=== PATIENT | male | born 1980 | race Caucasian/White ===

== ENCOUNTER 2025-03-21 19:03 | Inpatient (IN) | payer BC, SELFPAY ==
[2025-03-21] VITALS (13 sets, daily range): BP systolic 115–144; BP diastolic 72–102; PULSE 62–96; RESP 12–20; TEMP 34.7–36.6; O2SAT 95–100; BMI 28.2; BMI 35.5
--- NOTE | 2025-03-21 19:12 | EKG12_ITS ---
Test Reason : REPEAT CP Blood Pressure : */* mmHG Vent. Rate : 60 BPM Atrial Rate : 60 BPM P-R Int : 162 ms QRS Dur : 92 ms QT Int : 418 ms P-R-T Axes : 65 29 100 degrees QTcB Int : 418 ms Critical Test Result: STEMI Normal sinus rhythm Inferior infarct , possibly acute T wave abnormality, consider lateral ischemia ACUTE RI / STEMI Consider right ventricular involvement in acute inferior infarct Abnormal ECG Confirmed by KELLI OVIEDO, TREE ([id number]), managing editor TAYA CHUNG ([id number]) on 03/23/2025 9:18:53 AM Referred By: WILLIS Confirmed By: TERE PEREIRA MD
--- NOTE | 2025-03-21 19:12 | ED.VIS.CHEST ---
HPI History of Present Illness Chief Complaint: Chest Pain Informant: patient and family Narrative Narrative: Sudden chest discomfort 40 minutes prior to arrival. [place] bike pretty hard with his side. Only felt fatigue during the bike ride. States achiness to the chest however pain rating to his shoulder reported he was clammy and pale. He vomited on the way here. No cardiac history. Remote tobacco 10 years ago. No family history of MIs at a young age. Hypertension no diabetes no hyperlipidemia. He is visiting from [place]. No history of blood clots. No cough symptoms. No history of stress test or heart caths in the past. Prior Similar Symptoms: No CVD Risk Factors: Positive for Hypertension; Negative for Diabetes, Hypercholesterolemia, Family History 1' </=55 or Smoking PE Risk Factors: Negative for Recent Travel/Surgery, Recent Immobilization or Prior DVT or PE [facility] Medical History Hypertension Home Medications ?Medication ?Instructions ?Recorded ?Last Taken ?Type losartan 25 mg tablet 25 mg PO DAILY 03/21/25 Unknown History Allergy/AdvReac Type Severity Reaction Status Date / Time No Known Allergies Allergy Verified 03/21/25 19:12 Social History Smoking Status: Former smoker ROS ROS ED Constitutional Constitutional ED: Reports sweats; Denies chills or fever(s) ENT ENT ED: Denies sore throat Cardiovascular Cardiovascular: Reports chest pain; Denies leg edema, palpitations or racing heartbeat Respiratory/Chest Respiratory/Chest: Denies cough, dyspnea or dyspnea on exertion Gastrointestinal Gastrointestinal: Reports nausea and vomiting; Denies abdominal pain or diarrhea Genitourinary Genitourinary ED: Denies dysuria, hematuria or urinary frequency Musculoskeletal Musculoskeletal: Denies back pain, extremity pain or neck pain Integumentary Denies rash or wounds Neurologic Neurologic: Denies headache(s), paresthesias or weakness EXAM Physical Exam Const Vital Signs: 03/21/25 19:05 03/21/25 19:09 03/21/25 19:14 Temperature 94.4 F L Temperature Source Oral Pulse Rate 63 Respiratory Rate 17 Respiratory Effort Short of Breath Blood Pressure 144/102 H Blood Pressure Mean 116 Pulse Ox 95 99 Oxygen Delivery Method Room Air Room Air Heart Score History: Highly Suspicious ECG: Significant ST-Depression Age: </= 45 years Risk Factors: 1 or 2 Risk Factors Troponin: </= Normal Limit Score: 5 MDM MDM MDM Narrative Medical decision making narrative: Interventions / MDM: Differential diagnosis: STEMI, chest pain, acs Diagnosis considered but do not suspect: N/A My EKG interpretation: Sinus rate of 77, no concerning ST elevation noted in inferior leads no reciprocal depressions however there are T wave inversion in aVL slight downsloping. T wave inversions anterior leads V1 V2. PVC noted. Repeat EKG at 1927: Unchanged. Imaging independently reviewed and interpreted by myself: N/A External documents reviewed: N/A Test considered but not ordered:N/A ED course: Patient with chest pains on the monitor heart rate 60 blood pressure 144/102. Cardiac workup ordered with aspirin. EKG concerning ST elevation in inferior leads no clear reciprocal changes however noted T wave version with downsloping aVL. STEMI alert was initiated. 1914: I spoke with STEMI photovoltaic subcontractor Dr. Whittaker, reviewed the imaging concerning of early onset of STEMI. Does not meet full criteria with reciprocal, however with ongoing pain does agree with aspirin Brilinta heparin. He will come in to see the patient to perform a heart catheterization. Recommend repeat EKG. Hospitalist Dr. Mcintyre is present in the ED evaluating the patient. 1927: Repeat EKG unchanged from first 1 however electrically is noting STEMI. 1934: Patient still uncomfortable with pain does not agree for pain medicines. IV fentanyl given. Blood pressure 132/92 1938: Discussing with Dr. Whittaker, does not meet full STEMI criteria, will treat as acute coronary syndrome concerns with unstable angina. He will take him to the Dis[facility]. Re-evaluation: stable Disposition discussed with patient/family/significant other: patient Case discussed with consulting clinician: interventional cardiology, hospitalist This note was generated with [employer] dictation software. It may contain incorrect words, spelling, and punctuation that were not noted in checking the note before signing. Lab Data Labs: Laboratory Results - last 24 hr 03/21/25 19:09 WBC 9.4 RBC 4.93 Hgb 14.8 Hct 42.7 MCV 86.6 MCH 30.0 MCHC 34.7 RDW Std Deviation 39.1 RDW Coeff of [place] 12.3 Plt Count 190 MPV 9.7 Immature Gran % (Auto) 0.200 Neut % (Auto) 44.8 L Lymph % (Auto) 42.3 H [place] % (Auto) 9.6 Eos % (Auto) 2.5 Baso % (Auto) 0.6 Absolute Neuts (auto) 4.2 Absolute Lymphs (auto) 3.99 Nucleated RBC % 0 PT 15.3 H INR 1.2 APTT 25.0 Sodium 139 Potassium 3.5 Chloride 101 Carbon Dioxide 25.1 Anion Gap 14 BUN 14 Creatinine 0.98 Estim Creat Clear Calc 114.72 Est GFR (MDRD) Non-Af 98 BUN/Creatinine Ratio 14.0 Glucose 120 H Calcium 9.2 Troponin T High Sens < 6 Critical Care Time Critical Care Time: Yes Critical care time (excluding procedures): 30-74 minutes, Discussing w/Patient &/or Family/Electrical Research Engineer, Discussing w/Consultants, Arranging Admission or Transfer, Performing Direct Patient Care at Bedside and - (35 minutes) Discharge Plan Dx/Rx/DC Orders Clinical Impression: Chest pain, ACS (acute coronary syndrome), Unstable angina Disposition Disposition: Acute Care Hospital [facility]
--- NOTE | 2025-03-21 19:15 | CM.ED ---
Social Work Date of referral: 03/21/25 Reason for Referral: STEMI alert mill worker responded to STEMI alert. Patient's friend, eMet was present and social work therapist provided support to Meet while patient received medical care. Meet was asked to leave the room so social work therapist accompanied Meet to the waiting room and offered water while he waited, which he declined. Next time social work therapist went to check on patient and Meet, patient was no longer in the ED. Rina Nichole, FISH FILLETER, STEM CLEANING MACHINE FEEDER
[2025-03-21] MEDS: Ondansetron 4 MG/2 ML Vial IV (19:17)
[2025-03-21] MEDS: Heparin Injection (Vial) 5,000 UNIT/ML VIAL 5000 UNIT IV (19:20)
[2025-03-21 19:21] LABS: Absolute Lymphocyte Count 3.99 X10^3/uL (0.83-4.51); Absolute Neutrophil Count 4.2 X10^3/uL (2.0-7.7); Basophil# 0.06 X10^3/uL; Basophil% 0.6 % (0-1); Eosinophil# 0.24 X10^3/uL; Eosinophils% 2.5 % (0-5); Hematocrit 42.7 % (40-54); Hemoglobin 14.8 g/dL (13.0-16.5); Lymphocyte # 3.99 X10^3/ul (0.83-4.51); Lymphocyte % 42.3 % (19-41); Mean Corp Hgb Conc 34.7 g/dL (32-36); Mean Corpuscular Volume 86.6 fL (80-94); Mean Platelet Vol. 9.7 fl (6.2-12.0); Monocyte# 0.91 X10^3/uL; Monocyte% 9.6 % (0-10); NRBC Flagged by Analyzer 0 % (0-5); Neutrophil # 4.22 X10^3/uL (2.7-7.7); Neutrophil % 44.8 % (47-70); Platelet Count 190 K/mm3 (150-450); RBC Distribution Width CV 12.3 % (11.6-14.6); RBC Distribution Width SD 39.1 fl (35.1-43.9); Red Blood Count 4.93 M/mm3 (4.6-6.2); White Blood Count 9.4 K/mm3 (4.4-11.0)
--- NOTE | 2025-03-21 19:22 | EKG12_ITS ---
Test Reason : CP Blood Pressure : */* mmHG Vent. Rate : 77 BPM Atrial Rate : 65 BPM P-R Int : 164 ms QRS Dur : 92 ms QT Int : 412 ms P-R-T Axes : 64 31 97 degrees QTcB Int : 466 ms Sinus rhythm with occasional Premature ventricular complexes Nonspecific ST and T wave abnormality Abnormal ECG Confirmed by KELLI OVIEDO, TERE ([id number]), offline editor TAYA CHUNG ([id number]) on 03/23/2025 9:18:26 AM Referred By: WILLIS Confirmed By: TERE PEREIRA MD
[2025-03-21] MEDS: Aspirin 81 MG TAB.CHEW 324 MG PO (19:23)
[2025-03-21] MEDS: TICAGRELOR 90 MG TABLET 180 MG PO (19:25)
--- NOTE | 2025-03-21 19:26 | NURSING ---
Right groin and wrist prepped, consent signed, Meds given as ordered. Pt refuses need for pain meds. left shoulder pain 02/12.
[2025-03-21 19:27] LABS: International Normalized Ratio 1.2; Prothrombin Time (Protime)PT. 15.3 SECONDS (11.7-14.9)
--- NOTE | 2025-03-21 19:31 | EKG12_ITS ---
Test Reason : post pci Blood Pressure : */* mmHG Vent. Rate : 58 BPM Atrial Rate : 58 BPM P-R Int : 162 ms QRS Dur : 88 ms QT Int : 420 ms P-R-T Axes : 68 11 81 degrees QTcB Int : 412 ms Sinus bradycardia with sinus arrhythmia Possible Inferior infarct , age undetermined Abnormal ECG When compared with ECG of 21-Mar-2025 22:41, MANUAL COMPARISON REQUIRED DATA IS UNCONFIRMED Confirmed by KELLI OVIEDO, TERE ([id number]), editor managing director TAYA CHUNG ([id number]) on 03/23/2025 9:43:19 AM Referred By: Confirmed By: TERE PEREIRA MD
--- NOTE | 2025-03-21 19:32 | PCM.HP.STD ---
HPI - General General Date of Admission: 03/21/25 Date of Service: 03/21/25 Chief Complaint: Acute chest pain HPI Narrative OLAYINKA BROWN, is a 44 M with past medical history of hypertension on losartan who presents to the ED with concerns regarding ongoing left-sided back shoulder and arm pain since last 30 to 45 minutes. The pain started after he biked around his house for 30 minutes. There is some associated diaphoresis and feels significantly fatigued but no nausea or vomiting. Has never had a pain similar to this before. Has a history of smoking but has quit about 10 years back. No marijuana use no other drug use. History of hypertension and takes losartan consistently, notes his blood pressure is is fairly well-controlled. No history of cardiac disease in the family, no history of prior anginal-like episodes, no history of PND At the time presentation to the ED blood pressure 132/91, pulse 62, respiratory 12, oxygen daily 97% on room air WBC 9.4, hemoglobin 14.8, platelet count 190, INR 1.2, PT 15.3. His EKG was suggestive of elevations and ST segment in leads II, III, aVF but no reciprocal changes in rest of the leads. ED physician spoke with inspector hairspring truing on-call, given concerns of ACS, patient is being taken to the [facility]. He has received 300 mg of aspirin, 180 mg of Brilinta, and 5000 units of IV heparin in the ED. Also, provided fentanyl 50 mcg for pain [facility] Medical History Hypertension Home Medications ?Medication ?Instructions ?Recorded ?Last Taken ?Type losartan 25 mg tablet 25 mg PO DAILY 03/21/25 Unknown History Allergy/AdvReac Type Severity Reaction Status Date / Time No Known Allergies Allergy Verified 03/21/25 19:12 Social History Smoking Status: Former smoker ROS Review of Systems ROS Unobtainable: Denies due to encephalopathy, due to endotracheal tube, due to mental condition, due to mental status or other Constitutional Constitutional: Denies anorexia, change in weight, chills, fatigue, fever(s), malaise, night sweats, weakness or other Eyes Eyes: Denies blurry vision, change in eye color, change in vision, discharge from eye(s), double vision, erythema, eye pain, loss of vision or other ENT HEENT: Denies abnormal hearing, dysphagia, ear pain, epistaxis, headache(s), hearing loss, nasal congestion, nasal discharge, post nasal drip, sinus pressure, sore throat or other Cardiovascular Cardiovascular: Reports chest pain; Denies claudication, dyspnea on exertion, edema, lightheadedness, orthopnea, palpitations, paroxysmal nocturnal dyspnea, rapid heart rate, syncope or other Respiratory/Chest Respiratory/Chest: Denies cough, dyspnea, excessive phlegm production, hemoptysis, productive cough, shortness of breath at rest, shortness of breath with exertion, wheezing or other Gastrointestinal Gastrointestinal: Denies abdominal pain, coffee ground emesis, constipation, diarrhea, dyspepsia, hematemesis, hematochezia, loose stools, melena, nausea, vomiting or other Genitourinary Genitourinary: Denies burning urination, difficulty urinating, dysuria, hematuria, nocturia, urinary frequency, urinary hesitancy, urinary incontinence, urinary urgency or other Musculoskeletal Musculoskeletal: Denies arthralgias, back pain, joint pain, joint stiffness, joint swelling, myalgias, neck pain or other Neurologic Neurologic: Denies abnormal gait, abnormal speech, confusion, disequilibrium, dizziness, focal weakness, headache(s), numbness, paresthesias, seizure-like activity, seizures, syncope, tingling, tremor(s) or other Psychiatric Psychiatric: Denies anxiety, depression, homicidal ideation, suicidal ideation or other Endocrine Endocrinology: Denies change in body appearance, cold intolerance, excessive sweating, heat intolerance, polydipsia, polyuria or other Hematologic/Lymphatic Hematologic/Lymphatic: Denies anemia, easy bleeding, easy bruising, lymphadenopathy or other Allergic/Immunologic Allergic/Immunologic: Denies rhinitis, hives, eczemia, asthma or other Vital Signs Vital Signs Vital Signs: 03/21/25 19:05 03/21/25 19:09 03/21/25 19:14 Temperature 94.4 F L Temperature Source Oral Pulse Rate 63 Respiratory Rate 17 Respiratory Effort Short of Breath Blood Pressure 144/102 H Blood Pressure Mean 116 Pulse Ox 95 99 Oxygen Delivery Method Room Air Room Air 03/21/25 19:30 Temperature 98 F Temperature Source Oral Pulse Rate 62 Respiratory Rate 12 Respiratory Effort Blood Pressure 132/91 H Blood Pressure Mean 104 Pulse Ox 97 Oxygen Delivery Method Room Air Weight Weight: 208 lb 1.862 oz Body Mass Index (BMI) 28.2 Physical Exam Const alert and oriented x3 General Appearance: cooperative HEENT normocephalic and head/scalp atraumatic Eyes PERRL and EOMs intact bilaterally Neck no lymphadenopathy Resp normal respiratory effort Cardio regular rate and regular rhythm Cardio Narrative: Multiple PVCs on telemetry GI normal to inspection, nondistended, normoactive bowel sounds Extremity normal to inspection Neuro oriented x3, CN's II-XII intact bilaterally and moves all extremities Results Medical Records Data Attestation: I reviewed the patient's medical records Lab / Micro Data 03/21/25 19:09 03/21/25 19:09 Labs: Laboratory Results - last 24 hr 03/21/25 19:09: WBC 9.4, RBC 4.93, Hgb 14.8, Hct 42.7, MCV 86.6, MCH 30.0, MCHC 34.7, RDW Std Deviation 39.1, RDW Coeff of [place] 12.3, Plt Count 190, MPV 9.7, Immature Gran % (Auto) 0.200, Neut % (Auto) 44.8 L, Lymph % (Auto) 42.3 H, [place] % (Auto) 9.6, Eos % (Auto) 2.5, Baso % (Auto) 0.6, Absolute Neuts (auto) 4.2, Absolute Lymphs (auto) 3.99, Nucleated RBC % 0, PT 15.3 H, INR 1.2, APTT 25.0 Assessment & Plan Assessment/Plan (1) ACS (acute coronary syndrome): PLAN: Plan 44-year-old male with past medical history of hypertension presents to the ED with acute onset chest pain radiating to the left arm with changes concerning for ST elevation on EKG. Likely reason for his presentation could be an acute coronary syndrome likely unstable angina and his troponin levels are . pending # Acute coronary syndrome -Based on discussion with cardiology, transferring patient urgently to [facility] for cardiac catheterization -Received aspirin, Brilinta, heparin in the ED -Admit to the ICU with continuous telemetry after the procedure # HTN - Hold losartan # DVT - Will be anticoagulated after the procedure
[2025-03-21 19:35] LABS: Anion Gap 14 (5-15); BUN 14 mg/dL (4-19); Calcium,Total 9.2 mg/dL (7.6-11.0); Carbon Dioxide 25.1 mmol/L (21.0-32.0); Chloride 101 mmol/L (98-108); Creatinine, Serum 0.98 mg/dL (0.70-1.20); EST Glomerular Filtration Rate 98 (>60); Estimated Creatinine Clearance 114.72 ml/min (50-250); Glucose 120 mg/dL (70-99); Potassium 3.5 mmol/L (3.3-5.1); Sodium Level 139 mmol/L (133-145); Troponin T High Sensitivity < 6 ng/L (<=22)
[2025-03-21] MEDS: fentaNYL 100 MCG/2 ML Ampul 50 MCG IV (19:37)
--- NOTE | 2025-03-21 21:51 | PCM.CONS.C ---
Assessment & Plan Assessment/Plan (1) ACS (acute coronary syndrome): PLAN: Treated with drug-eluting stent to the RCA. Recommend keeping patient on aspirin, Brilinta, statin, beta-nando. Continue losartan. HPI Consult Data Date of Consult: 03/21/25 HPI Narrative Reason for Consultation: Chest pain, acute coronary syndrome HPI Narrative: OLAYINKA BROWN, is a 44 M who presents with chest pain and shoulder pain. Patient's EKG was concerning with ST changes in the inferior leads. Patient was having ongoing chest pain and so he was brought emergently to the cardiac Auto Bra[facility] and underwent coronary angiography which revealed 100% occlusion of the proximal RCA that was treated with drug-eluting stent placement. Patient's chest pain resolved at the end of the procedure and he is being admitted to the CCU for further management. [facility] Medical History Hypertension Home Medications ?Medication ?Instructions ?Recorded ?Last Taken ?Type losartan 25 mg tablet 25 mg PO DAILY 03/21/25 Unknown History Allergy/AdvReac Type Severity Reaction Status Date / Time No Known Allergies Allergy Verified 03/21/25 19:12 Social History Smoking Status: Former smoker Physical Exam Const alert and oriented x3 HEENT normocephalic Eyes no scleral icterus Resp normal respiratory effort Cardio regular rate Risk Stratification Risk Stratification Applicable: No Charges/Coding Visit Charges Inpatient E&M: 02402 Init Hosp L2 Objective Data Vital Signs: Vital Signs Temp Pulse Resp BP Pulse Ox O2 Del Method 98 F 65 17 132/92 H 99 Room Air 03/21/25 19:33 03/21/25 19:33 03/21/25 19:33 03/21/25 19:33 03/21/25 19:33 03/21/25 19:30 Oxygen Delivery Method Room Air Weight: 208 lb 1.862 oz Body Mass Index (BMI) 28.2 Lab / Micro Data 03/21/25 19:09 03/21/25 19:09 Labs: Laboratory Results - last 24 hr 03/21/25 19:09: WBC 9.4, RBC 4.93, Hgb 14.8, Hct 42.7, MCV 86.6, MCH 30.0, MCHC 34.7, RDW Std Deviation 39.1, RDW Coeff of [place] 12.3, Plt Count 190, MPV 9.7, Immature Gran % (Auto) 0.200, Neut % (Auto) 44.8 L, Lymph % (Auto) 42.3 H, [place] % (Auto) 9.6, Eos % (Auto) 2.5, Baso % (Auto) 0.6, Absolute Neuts (auto) 4.2, Absolute Lymphs (auto) 3.99, Nucleated RBC % 0, PT 15.3 H, INR 1.2, APTT 25.0, Sodium 139, Potassium 3.5, Chloride 101, Carbon Dioxide 25.1, Anion Gap 14, BUN 14, Creatinine 0.98, Estim Creat Clear Calc 114.72, Est GFR (MDRD) Non-Af 98, BUN/Creatinine Ratio 14.0, Glucose 120 H, Calcium 9.2, Troponin T High Sens < 6 Cardiology Labs/Tests 03/21/25 19:09: WBC 9.4, RBC 4.93, Hgb 14.8, Hct 42.7, MCV 86.6, MCH 30.0, MCHC 34.7, Plt Count 190, MPV 9.7, Immature Gran % (Auto) 0.200, Neut % (Auto) 44.8 L, Lymph % (Auto) 42.3 H, [place] % (Auto) 9.6, Eos % (Auto) 2.5, Baso % (Auto) 0.6, Absolute Neuts (auto) 4.2, Nucleated RBC % 0, PT 15.3 H, INR 1.2, APTT 25.0, Sodium 139, Potassium 3.5, Chloride 101, Carbon Dioxide 25.1, Anion Gap 14, BUN 14, Creatinine 0.98, Est GFR (MDRD) Non-Af 98, BUN/Creatinine Ratio 14.0, Glucose 120 H, Calcium 9.2 Rhythm: EKG: ECHO: Stress Test: Cardiac Cath: PCI: CT Surgery: Holter monitor: EPS: PPM: CXR: Chest CT Scan:
--- NOTE | 2025-03-21 22:06 | CRPHASE1_ITS ---
Patient Communication Patient Information Former Patient:: Phase I PHII Cardiac Rehab Discussed with Patient:: Yes Guide to Cardiac Rehab Given to Patient:: Yes Cardiac Rehab Facility Choice List Given to Patient:: Yes Cardiac Rehabilitation Info Program Information Cardiac Rehabilitation Program Information: Cardiac Rehab The cardiac rehab team at [facility] consists of highly skilled exercise physiologists, nurses, respiratory therapists and physicians working together with you. Our purpose is to help you have a full recovery and achieve the goals you set for yourself. Over the years many of our patients have returned to activities they assumed they would never do again! We can help restore your confidence and motivation to make lifestyle changes that can have a significant impact on your health and quality of life! We can help answer questions and concerns you may have about exercise, lifestyle, medications, diet, stress and anxiety which are common following a hospitalization. WE monitor ECG and vital signs during exercise and discuss your progress with you and report to your physician(s). Cardiac Rehab is proven to help reduce readmissions, improve functional capacity and lower recurrence of problems with your heart. Our Cardiac Rehab program is Certified by the [place] Association of Cardio-Vascular and Pulmonary Rehabilitation (AACVPR) and Accredited by the [place] [employer] through our [facility]. You can contact us at . We invite you to call us with your questions or to get started in our program. If you have other questions or concerns be sure to ask your physician/provider during your follow-up visit. WE look forward to seeing you!
--- NOTE | 2025-03-21 22:07 | CRPH1.INSTRU ---
Smoking Risk Factors Patient Nicotine/Smoking Risk Factors Are:: Cigarettes, Cigars and Smokeless tobacco Recommendations Recommendations Include:: Second-hand smoke recommendation and Previous smoker; encourage continued cessation Response Code Nicotine/Smoking Response Code:: Patient communicates acknowledgment Dyslipidemia Risk Factors Patient Dyslipidemia Risk Factors Are:: Total Cholesterol, Triglycerides, HDL and LDL Recommendations Recommendations Include:: Lipid profile not available, Reviewed NCEP/ATP guidelines and Therapeutic Lifestyle Change dietary guidelines Response Code Dyslipidemia Response Code:: Patient communicates acknowledgment Overweight/Obesity Risk Factors Patient Overweight/Obesity Risk Factors Are:: Overweight = 26-29 and Obesity - > or = 30 Recommendations Recommendations Include:: Weight loss of 5-10%, Reduced calorie diet and Exercise 5-7 times/week Response Code Overweight/Obesity:: Patient communicates acknowledgment Hypertension Recommendations Recommendations Include:: Maintain BP <130/85, BP <130/80 if diabetic, Decrease/maintain normal body weight and Moderation of ETOH Response Code Hypertension:: Patient communicates acknowledgment, Family communicates acknowledgment, Patient returns demonstration and Needs reinforcement Heart Disease Risk Factors Patient Heart Disease Risk Factors Are:: Family history of heart disease < 65 years old Recommendations Recommendations Include:: Educated family members of their risk and Educated family members of importance of prevention of heart disease Response Code Heart Disease Response Code:: Patient communicates acknowledgment Diabetes Risk Factors Patient Diabetes Risk Factors Are:: Elevated blood sugars Recommendations Recommendations Include:: Maintain fasting blood sugars 70-110 md/dL, Maintain HgbA1c of 6% or less, Monitor blood sugar as prescribed, Diabetic dietary guidelines and Decrease/maintain body weight Response Code Diabetes:: Patient communicates acknowledgment Metabolic Syndrome Risk Factors Patient Metabolic Syndrome Risk Factors Are [3 of 5]:: Fasting blood sugar > 100 mg/dL, Waist circumference > 35 [female] or 40 [male] and High triglyceride >150 Recommendations Recommendations Include:: Reinforce compliance to risk factor modifications, Patient is diabetic and Encouraged follow-up with Primary Care Physician Response Code Metabolic Syndrome Response Code:: Patient communicates acknowledgment Sedentary Risk Factors Patient Sedentary Risk Factors Are:: Lack of regular exercise Recommendations Recommendations Include:: Aerobic exercise 5-7 times/week for 20-30 minutes continuously, Benefits of regular exercise, Discussed home walking program and Monitored Outpatient Cardiac Rehab Response Code Sedentary Response Code:: Patient communicates acknowledgment Stress Risk Factors Patient Stress Risk Factors Are:: Patient denies stress as a risk factor Recommendations Recommendations Include:: Identification of stressors, and assessment of coping skills and Stress management techniques Response Code Stress Response Code:: Patient communicates acknowledgment
--- NOTE | 2025-03-21 22:23 | CL.I_ITS ---
Patient Name: OLAYINKA BROWN Study Date: 03/21/2025 Performing: Brianna Whittaker MD Ht: 72 inches 182.88 cm : 1980 Wt: 208.4 lbs 94.4 kg Age: 44 Gender: male BSA: 2.17 PROCEDURE(S) PERFORMED DC02-(52992)LHC/COR IC12-(01552/[id number])RODRIGO W/WO PTCA, SINGLE CORONARY ARTERY CLINICAL PROFILE AND CO-MORBIDITIES Heart Failure: None CAD Presentations: Non-STEMI. Symptom onset Date/Time: 03/21/25 Time Not Available CONCLUSIONS CAD as described. Successful drug-eluting stent to the RCA as described. RECOMMENDATIONS DESCRIPTION OF PROCEDURE The patient arrived to the procedure lab. The risks and benefits of the procedure as well as a full description of our services here and lack of surgical backup were fully explained to the patient and/or their significant other prior to the catheterization. The Timeout was completed, verifying the correct patient and procedure. The patient's procedural site was prepped and draped in the usual fashion. Local anesthetic was given subcutaneously to right radial region with Lidocaine 2%. Using a modified Seldinger technique, arterial access was obtained via the right radial artery, a 6Fr sheath was inserted.. Right Coronary Artery selective angiography was then performed in multiple views using a 5 Fr. JL3.5 catheter. Left Coronary Artery selective angiography was performed in multiple views using a 5 Fr. JL3.5 catheterThe images were reviewed and options discussed. A decision was then made to proceed with an Intervention, IVUS or other adjunct procedure. JR4 Guide catheter was inserted and engaged into the RCA. BMW Story Guide wire was advanced to the RCA. Priority One inserted Pass # 1 Priority One Removed Emerge 3.0 x 15 Balloon catheter was inserted. Balloon catheter was advanced across lesion in the right coronary, proximal. PTCA balloon inflated at 8 atms for 11 secs. Angiogram performed post balloon dilatation. Iam Dixon 3.5 x 22 Drug Eluting stent was inserted. Drug Eluting stent was advanced across the lesion in the right coronary, proximal. Runthrough 300cm Guide wire was advanced to the RCA. Shinobi Guide wire was advanced to the RCA. Mcconnell Dixon 3.5 x 38 Drug Eluting stent was inserted. Drug Eluting stent was advanced across the lesion in the right coronary, proximal. Iam Dixon 3.5 x 38 Drug Eluting stent was inserted. Drug Eluting stent was advanced across the lesion in the right coronary, proximal. Angiogram performed pre stent deployment. Angiogram performed post stent deployment. The arterial sheath was pulled and a TR Band was applied for hemostasis CORONARY ANGIOGRAPHY DOMINANCE: Right Dominant LEFT MAIN: Mild luminal irregularities LEFT ANTERIOR DESCENDING ARTERY: Mild diffuse disease CIRCUMFLEX ARTERY: Mild luminal irregularities RIGHT CORONARY ARTERY: Occluded in the proximal portion INTERVENTION INFORMATION LESION SITE: RCA (Proximal) Lesion Complexity: High/C, chronic total occlusion: No, lesion at bifurcation: No, thrombus present: Yes, lesion length: 19 mm, culprit lesion: Yes, Previously treated lesion: No Pre Stenosis: 100 % Pre intervention LINWOOD flow: 0 PROCEDURE: Thrombectomy, Drug Eluting Stent with pre and post dilatation After stent deployment, the stent balloon was removed. When we attempted to remove the BMW wire (lot no [id number]), the soft portion of the guidewire unraveled and from the rest of the guidewire. The portion was within the RCA. We tried to snare this but were unsuccessful. We then inserted another wire into the RCA and deployed 2 stents in the RCA pushing the guidewire against the vessel wall. The proximal of the 2 stents that were deployed overlapped with the original stent that was deployed. There was excellent angiographic result. Post Stenosis: 0 % Post intervention LINWOOD flow: 3 Lesion Devices: Cordis 6 Fr JR4 100cm Guide Catheter Silva .014 190cm BMW Story Straight Terumo Priority One Aspiration Catheter Narayan Sci EMERGE MR 3.00x15 BALLOON Medtronic 3.5 x 22 IAM FRONTIER RODRIGO Silva .014 190cm BMW Story Straight Terumo .014 300cm Runthrough extra floppy straight Cordis .014 300cm Shinobi Wire straight Medtronic 3.5 x 38 IAM FRONTIER RODRIGO Medtronic 3.5 x 38 IAM FRONTIER RODRIGO COMPLICATIONS No Complications PROCEDURE MEDICATIONS Oxygen: 2 L/min via nasal cannula Atropine 1mg/10ml 1 amp @ 03/21/2025 20:21:57 Heparin given IA 03/21/2025 20:02:05 Heparin 2000 unit(s) IV 03/21/2025 21:18:47 Nitro 100 mcg IC 03/21/2025 20:27:48 Nitro 100 mcg IC 03/21/2025 20:27:48 Verapamil 2.5mg, Ntg 100mcgs, 3000 units of Heparin given IA 03/21/2025 20:02:05 IV Bolus: .9 NaCl 300 ml total 03/21/2025 21:30:34 SUMMARY OF HEMODYNAMIC DATA Time AIR REST ECG 19:54:58 Art 118/70 (86) 20:05:11 AO 106/82 (96) SA 20:17:52 Signed By Brianna Whittaker MD On 03/21/2025 22:22:16 Brianna Whittaker MD
--- NOTE | 2025-03-21 22:30 | EKG12_ITS ---
Test Reason : post cath Blood Pressure : */* mmHG Vent. Rate : 71 BPM Atrial Rate : 71 BPM P-R Int : 172 ms QRS Dur : 94 ms QT Int : 390 ms P-R-T Axes : -7 42 -21 degrees QTcB Int : 423 ms Normal sinus rhythm with sinus arrhythmia Abnormal QRS-T angle, consider primary T wave abnormality Abnormal ECG When compared with ECG of 21-Mar-2025 19:28, MANUAL COMPARISON REQUIRED DATA IS UNCONFIRMED Confirmed by KELLI OVIEDO, TERE ([id number]), clinical editor DOMINIC TORRES ([id number]) on 03/24/2025 9:39:33 AM Referred By: Panfilo Confirmed By: TERE PEREIRA MD
[2025-03-22] VITALS (28 sets, daily range): BP systolic 91–144; BP diastolic 50–102; PULSE 55–87; RESP 14–25; TEMP 35.9–36.4; O2SAT 95–100; BMI 35.5
[2025-03-22 05:32] LABS: Absolute Lymphocyte Count 1.84 X10^3/uL (0.83-4.51); Basophil# 0.03 X10^3/uL; Basophil% 0.3 % (0-1); Eosinophil# 0.05 X10^3/uL; Eosinophils% 0.5 % (0-5); Hematocrit 40.6 % (40-54); Hemoglobin 14.1 g/dL (13.0-16.5); Lymphocyte # 1.84 X10^3/ul (0.83-4.51); Mean Corp Hgb Conc 34.7 g/dL (32-36); Mean Corpuscular Hgb 30.2 pg (27.0-32.0); Mean Corpuscular Volume 86.9 fL (80-94); Monocyte# 0.74 X10^3/uL; Monocyte% 7.6 % (0-10); NRBC Flagged by Analyzer 0 % (0-5); Neutrophil % 72.3 % (47-70); Platelet Count 181 K/mm3 (150-450); RBC Distribution Width CV 12.6 % (11.6-14.6); RBC Distribution Width SD 40.2 fl (35.1-43.9); Red Blood Count 4.67 M/mm3 (4.6-6.2); White Blood Count 9.7 K/mm3 (4.4-11.0)
[2025-03-22 05:48] LABS: International Normalized Ratio 1.2; Prothrombin Time (Protime)PT. 15.8 SECONDS (11.7-14.9)
[2025-03-22 06:14] LABS: Troponin T High Sensitivity 600 ng/L (<=22)
[2025-03-22 07:27] LABS: Hemoglobin A1c 5.4 % (<=5.6)
[2025-03-22 07:42] LABS: ALB/GLOB Ratio 1.5 RATIO (0.9-2.4); AST(SGOT) 68 U/L (<=37); Alanine Aminotransfer ALT/SGPT 36 U/L (<=46); Albumin, Serum 4.2 g/dL (3.5-5.0); Alkaline Phosphatase 46 U/L (40-129); Anion Gap 11 (5-15); BUN 12 mg/dL (4-19); BUN/Creat Ratio 14.7 RATIO (10-20); Bilirubin, Direct 0.13 mg/dL (0.00-0.30); Calcium,Total 9.2 mg/dL (7.6-11.0); Carbon Dioxide 24.8 mmol/L (21.0-32.0); Chloride 102 mmol/L (98-108); Creatinine, Serum 0.85 mg/dL (0.70-1.20); EST Glomerular Filtration Rate 110 (>60); Estimated Creatinine Clearance 147.58 ml/min (50-250); Globulin 2.8 g/dL (2.2-4.2); Glucose 115 mg/dL (70-99); Magnesium 2.3 mg/dL (1.5-2.2); Phosphorus 4.1 mg/dL (2.7-4.5); Potassium 4.4 mmol/L (3.3-5.1); Sodium Level 138 mmol/L (133-145); Total Bilirubin 0.51 mg/dL (0.00-1.30)
[2025-03-22] MEDS: TICAGRELOR 90 MG TABLET PO ×2 (09:00→21:16)
[2025-03-22] MEDS: Aspirin 81 MG TAB.CHEW PO (09:00)
[2025-03-22] MEDS: Metoprolol Tartrate 25 MG Tablet PO (09:00)
[2025-03-22] MEDS: Losartan Potassium 25 MG Tablet PO (09:24)
--- NOTE | 2025-03-22 09:42 | ECHOCS_ITS ---
Reason For Study Reason For Study: CAD/ASHD Procedure This was a 2D Doppler, Color Flow transthoracic echocardiogram. The study was technically difficult. Contrast injection was performed. Exam performed portable in ICU/CCU. Left Ventricle Normal LV size. Left ventricular systolic function is normal. The left ventricular ejection fraction is 55 %. No regional wall motion abnormalities noted. Right Ventricle Normal RV size. Normal systolic function. Atria Normal left atrium. Normal right atrium. Mitral Valve Normal mitral valve. Tricuspid Valve Normal tricuspid valve. Mild tricuspid valve insufficiency. Pulmonary artery systolic pressure is 28 mmHg. Aortic Valve Normal aortic valve. Trisinus/trileaflet aortic valve. Pulmonic Valve Normal pulmonic valve. Great Vessels Normal aortic root. The pulmonary artery is normal size. Inferior vena cava collapse with respiration. Pericardium/Pleural No pericardial effusion. Medication Diluted definity 2ml given slow IV push to enhance endocardial definition. MMode/2D Measurements & Calculations LVIDd: 4.7 cm IVSd: 0.91 cm Ao root diam: 3.2 cm LVIDs: 3.2 cm LVPWd: 0.85 cm RVDd: 3.6 cm FS: 30.8 % LAV(MOD-bp): 56.8 ml LVAd ap4: 38.5 cm2 SV(MOD-sp4): 76.4 ml LAV(MOD-bp) Indexed: 23.8 ml/m2 LVLd ap4: 9.3 cm SI(MOD-sp4): 32.0 ml/m2 LAV(MOD-sp2): 59.8 ml EDV(MOD-sp4): 131.8 ml LAV(MOD-sp4): 51.9 ml EDV(sp4-el): 134.8 ml LVAs ap4: 21.7 cm2 LVLs ap4: 6.9 cm ESV(MOD-sp4): 55.3 ml ESV(sp4-el): 57.9 ml EF(MOD-sp4): 58.0 % EF(sp4-el): 57.1 % SV(sp4-el): 77.0 ml LA A4 area: 19.4 cm2 LA dimension(2D): 3.7 cm RA A4 area: 18.1 cm2 TAPSE: 2.1 cm Time Measurements MV dec time: 0.17 sec Doppler Measurements & Calculations MV E max brandon: 68.0 cm/sec Lat Peak E' Brandon: 20.5 cm/sec Med Peak E' Brandon: 12.8 cm/sec MV A max brandon: 53.5 cm/sec E/E' lat: 3.3 E/E' med: 5.3 MV E/A: 1.3 MV V2 max: 83.5 cm/sec MV P1/2t max brandon: 84.1 cm/sec Ao V2 max: 127.4 cm/sec MV max P.8 mmHg MV P1/2t: 64.5 msec Ao max P.5 mmHg MV V2 mean: 41.8 cm/sec MV dec slope: 382.0 cm/sec2 Ao V2 mean: 91.0 cm/sec MV mean P.85 mmHg MVA(P1/2t): 3.4 cm2 Ao mean P.7 mmHg MV V2 VTI: 25.6 cm Ao V2 VTI: 28.3 cm AV (velocity ratio): 0.84 LV V1 max: 96.0 cm/sec MR max brandon: 506.3 cm/sec TR max brandon: 244.5 cm/sec LV V1 max P.7 mmHg MR max P.5 mmHg TR max P.9 mmHg LV V1 mean P.2 mmHg LV V1 mean: 68.5 cm/sec LV V1 VTI: 23.6 cm ECHO/Echo Complete W/ Contrast Interpretation Summary Normal LV size. Left ventricular systolic function is normal. The left ventricular ejection fraction is 55 %. Structurally normal valves. Ordering Physician: Cosme Castañeda Performed By: Ivan March RCS
--- NOTE | 2025-03-22 09:43 | PCM.PN.CARD ---
Subjective Subjective Patient seen and evaluated. Chest pain-free at this time. Objective Data Vital Signs: Vital Signs Temp Pulse Resp BP Pulse Ox O2 Del Method 97.5 F L 62 16 123/76 H 97 Room Air 03/22/25 08:00 03/22/25 09:00 03/22/25 09:00 03/22/25 09:00 03/22/25 09:00 03/22/25 09:00 Oxygen Delivery Method Room Air Weight: 261 lb 14.546 oz Body Mass Index (BMI) 35.5 Intake & Output: Intake and Output for Last 24 Hours 03/20/25 03/21/25 03/22/25 23:59 23:59 23:59 Intake Total 400 / 400 Output Total 450 / 450 800 / 800 Balance -50 / -50 -800 / -800 Lab / Micro Data 03/22/25 05:15 03/22/25 05:15 Labs: Laboratory Results - last 24 hr 03/21/25 19:09: WBC 9.4, RBC 4.93, Hgb 14.8, Hct 42.7, MCV 86.6, MCH 30.0, MCHC 34.7, RDW Std Deviation 39.1, RDW Coeff of Emory 12.3, Plt Count 190, MPV 9.7, Immature Gran % (Auto) 0.200, Neut % (Auto) 44.8 L, Lymph % (Auto) 42.3 H, Preble % (Auto) 9.6, Eos % (Auto) 2.5, Baso % (Auto) 0.6, Absolute Neuts (auto) 4.2, Absolute Lymphs (auto) 3.99, Nucleated RBC % 0, PT 15.3 H, INR 1.2, APTT 25.0, Sodium 139, Potassium 3.5, Chloride 101, Carbon Dioxide 25.1, Anion Gap 14, BUN 14, Creatinine 0.98, Estim Creat Clear Calc 114.72, Est GFR (MDRD) Non-Af 98, BUN/Creatinine Ratio 14.0, Glucose 120 H, Calcium 9.2, Troponin T High Sens < 6 03/22/25 05:15: WBC 9.7 03/22/25 05:15: WBC Cancelled, Corrected WBC Cancelled, RBC 4.67 03/22/25 05:15: RBC Cancelled, Hgb 14.1 03/22/25 05:15: Hgb Cancelled, Hct 40.6 03/22/25 05:15: Hct Cancelled, MCV 86.9 03/22/25 05:15: MCV Cancelled, MCH 30.2 03/22/25 05:15: MCH Cancelled, MCHC 34.7 03/22/25 05:15: MCHC Cancelled, RDW Std Deviation 40.2 03/22/25 05:15: RDW Std Deviation Cancelled, RDW Coeff of Emory 12.6 03/22/25 05:15: RDW Coeff of Emory Cancelled, Plt Count 181 03/22/25 05:15: Plt Count Cancelled, MPV 10.0 03/22/25 05:15: MPV Cancelled, Immature Gran % (Auto) 0.300, Neut % (Auto) 72.3 H, Lymph % (Auto) 19.0, Preble % (Auto) 7.6, Eos % (Auto) 0.5, Baso % (Auto) 0.3, Absolute Neuts (auto) 7.0, Absolute Lymphs (auto) 1.84, Nucleated RBC % 0, Diff Path Review Cancelled, PT 15.8 H, INR 1.2, Sodium 138, Potassium 4.4, Chloride 102, Carbon Dioxide 24.8, Anion Gap 11, BUN 12, Creatinine 0.85, Estim Creat Clear Calc 147.58, Est GFR (MDRD) Non-Af 110, BUN/Creatinine Ratio 14.7, Glucose 115 H, Hemoglobin A1c 5.4, Calcium 9.2, Phosphorus 4.1, Magnesium 2.3 H, Total Bilirubin 0.51, Direct Bilirubin 0.13, AST 68 H, ALT 36, Alkaline Phosphatase 46, Troponin T High Sens 600 H* D, Total Protein 7.0, Albumin 4.2, Globulin 2.8, Albumin/Globulin Ratio 1.5, TSH 1.760 Cardiology Labs/Tests 03/21/25 19:09: WBC 9.4, RBC 4.93, Hgb 14.8, Hct 42.7, MCV 86.6, MCH 30.0, MCHC 34.7, Plt Count 190, MPV 9.7, Immature Gran % (Auto) 0.200, Neut % (Auto) 44.8 L, Lymph % (Auto) 42.3 H, Preble % (Auto) 9.6, Eos % (Auto) 2.5, Baso % (Auto) 0.6, Absolute Neuts (auto) 4.2, Nucleated RBC % 0, PT 15.3 H, INR 1.2, APTT 25.0, Sodium 139, Potassium 3.5, Chloride 101, Carbon Dioxide 25.1, Anion Gap 14, BUN 14, Creatinine 0.98, Est GFR (MDRD) Non-Af 98, BUN/Creatinine Ratio 14.0, Glucose 120 H, Calcium 9.2 03/22/25 05:15: WBC 9.7 03/22/25 05:15: WBC Cancelled, Corrected WBC Cancelled, RBC 4.67 03/22/25 05:15: RBC Cancelled, Hgb 14.1 03/22/25 05:15: Hgb Cancelled, Hct 40.6 03/22/25 05:15: Hct Cancelled, MCV 86.9 03/22/25 05:15: MCV Cancelled, MCH 30.2 03/22/25 05:15: MCH Cancelled, MCHC 34.7 03/22/25 05:15: MCHC Cancelled, Plt Count 181 03/22/25 05:15: Plt Count Cancelled, MPV 10.0 03/22/25 05:15: MPV Cancelled, Immature Gran % (Auto) 0.300, Neut % (Auto) 72.3 H, Lymph % (Auto) 19.0, Preble % (Auto) 7.6, Eos % (Auto) 0.5, Baso % (Auto) 0.3, Absolute Neuts (auto) 7.0, Nucleated RBC % 0, PT 15.8 H, INR 1.2, Sodium 138, Potassium 4.4, Chloride 102, Carbon Dioxide 24.8, Anion Gap 11, BUN 12, Creatinine 0.85, Est GFR (MDRD) Non-Af 110, BUN/Creatinine Ratio 14.7, Glucose 115 H, Hemoglobin A1c 5.4, Calcium 9.2, Phosphorus 4.1, Magnesium 2.3 H, Total Bilirubin 0.51, Direct Bilirubin 0.13 Rhythm: EKG: ECHO: Stress Test: Cardiac Cath: PCI: CT Surgery: Holter monitor: EPS: PPM: CXR: Chest CT Scan: Physical Exam Const alert, oriented x3 and no apparent distress General Appearance: cooperative HEENT hearing grossly normal bilaterally Head and Scalp: atraumatic Eyes EOMs intact bilaterally Neck General: normal visual inspection Chest inspection of chest normal and palpation of chest normal Resp normal respiratory effort Auscultation: clear to auscultation bilaterally Cardio regular rate, regular rhythm, S1 normal heart sound and S2 normal heart sound Jugular Venous Distention: JVD GI normal to inspection, nondistended, normoactive bowel sounds Extremity normal capillary refill and no pedal edema Peripheral Pulses: Yes pulses 2+ throughout and femoral pulses present Skin no rashes or lesions noted Neuro oriented x3 and CN's II-XII intact bilaterally Psych Appearance: grossly normal and appropriate Assessment & Plan Assessment/Plan (1) Unstable angina: PLAN: Patient presented with unstable angina symptoms and underwent a cardiac catheterization with demonstrated regular right coronary artery for which he underwent angioplasty and stenting. He did well. There is a residual distal wire left in situ. Plan to be to continue him on the beta-nando High intensity statin Aspirin Brilinta indefinitely Echocardiogram in a.m. and depending on the findings further recommendations will be made.
--- NOTE | 2025-03-22 09:58 | PCM.PN.HOSP ---
Reason for Visit Reason for Visit: Diagnoses Unstable angina (03/21/25) Acute ischemic heart disease, unspecified (03/21/25) Subjective Subjective Patient was seen and examined today, he does not complain of any shortness of breath or chest pain, he underwent stenting of the right coronary artery yesterday due to a non-STEMI. He was history of heart disease. Objective Data Objective Data Vital Signs: Vital Signs Temp Pulse Resp BP Pulse Ox O2 Del Method 97.5 F L 62 16 123/76 H 97 Room Air 03/22/25 08:00 03/22/25 09:00 03/22/25 09:00 03/22/25 09:00 03/22/25 09:00 03/22/25 09:00 Oxygen Delivery Method Room Air Weight: 118.8 kg Body Mass Index (BMI) 35.5 Intake & Output: Intake and Output for Last 24 Hours 03/20/25 03/21/25 03/22/25 23:59 23:59 23:59 Intake Total 400 / 400 Output Total 450 / 450 800 / 800 Balance -50 / -50 -800 / -800 Lab / Micro Data 03/22/25 05:15 03/22/25 05:15 Labs: Laboratory Results - last 24 hr 03/21/25 19:09: WBC 9.4, RBC 4.93, Hgb 14.8, Hct 42.7, MCV 86.6, MCH 30.0, MCHC 34.7, RDW Std Deviation 39.1, RDW Coeff of Emory 12.3, Plt Count 190, MPV 9.7, Immature Gran % (Auto) 0.200, Neut % (Auto) 44.8 L, Lymph % (Auto) 42.3 H, Chambers % (Auto) 9.6, Eos % (Auto) 2.5, Baso % (Auto) 0.6, Absolute Neuts (auto) 4.2, Absolute Lymphs (auto) 3.99, Nucleated RBC % 0, PT 15.3 H, INR 1.2, APTT 25.0, Sodium 139, Potassium 3.5, Chloride 101, Carbon Dioxide 25.1, Anion Gap 14, BUN 14, Creatinine 0.98, Estim Creat Clear Calc 114.72, Est GFR (MDRD) Non-Af 98, BUN/Creatinine Ratio 14.0, Glucose 120 H, Calcium 9.2, Troponin T High Sens < 6 03/22/25 05:15: WBC 9.7 03/22/25 05:15: WBC Cancelled, Corrected WBC Cancelled, RBC 4.67 03/22/25 05:15: RBC Cancelled, Hgb 14.1 03/22/25 05:15: Hgb Cancelled, Hct 40.6 03/22/25 05:15: Hct Cancelled, MCV 86.9 03/22/25 05:15: MCV Cancelled, MCH 30.2 03/22/25 05:15: MCH Cancelled, MCHC 34.7 03/22/25 05:15: MCHC Cancelled, RDW Std Deviation 40.2 03/22/25 05:15: RDW Std Deviation Cancelled, RDW Coeff of Emory 12.6 03/22/25 05:15: RDW Coeff of Emory Cancelled, Plt Count 181 03/22/25 05:15: Plt Count Cancelled, MPV 10.0 03/22/25 05:15: MPV Cancelled, Immature Gran % (Auto) 0.300, Neut % (Auto) 72.3 H, Lymph % (Auto) 19.0, Chambers % (Auto) 7.6, Eos % (Auto) 0.5, Baso % (Auto) 0.3, Absolute Neuts (auto) 7.0, Absolute Lymphs (auto) 1.84, Nucleated RBC % 0, Diff Path Review Cancelled, PT 15.8 H, INR 1.2, Sodium 138, Potassium 4.4, Chloride 102, Carbon Dioxide 24.8, Anion Gap 11, BUN 12, Creatinine 0.85, Estim Creat Clear Calc 147.58, Est GFR (MDRD) Non-Af 110, BUN/Creatinine Ratio 14.7, Glucose 115 H, Hemoglobin A1c 5.4, Calcium 9.2, Phosphorus 4.1, Magnesium 2.3 H, Total Bilirubin 0.51, Direct Bilirubin 0.13, AST 68 H, ALT 36, Alkaline Phosphatase 46, Troponin T High Sens 600 H* D, Total Protein 7.0, Albumin 4.2, Globulin 2.8, Albumin/Globulin Ratio 1.5, TSH 1.760 Physical Exam Const alert, oriented x3, no apparent distress and healthy appearing General Appearance: cooperative, well kempt and well developed Orientation / Consciousness: awake, oriented to person, oriented to place and oriented to time HEENT normocephalic, head/scalp atraumatic and moist oral mucous membranes Eyes PERRL, EOMs intact bilaterally and conjunctivae normal Neck supple, no JVD, thyroid normal and no carotid bruits General: trachea midline Resp normal respiratory effort, no retractions, no use of accessory muscles and clear to auscultation bilaterally Auscultation: Negative for rales, rhonchi or wheezes Cardio regular rate, regular rhythm, S1 normal heart sound, S2 normal heart sound, no murmurs, no rub and no gallops GI normal to inspection, nondistended, normoactive bowel sounds, soft to palpation, non-tender and non-distended Extremity no clubbing, cyanosis or edema Skin no rashes or lesions noted General Skin Exam: no breakdown Neuro oriented x3, CN's II-XII intact bilaterally, no focal motor deficits and no sensory deficits noted Sensorium / Orientation: awake and alert Speech: speech normal Psych affect normal Assessment & Plan Assessment/Plan (1) ACS (acute coronary syndrome): PLAN: Plan 1. [id number] post stenting of the right coronary artery-continue on present meds, patient will have an echocardiogram performed tomorrow #2 essential hypertension-patient is on losartan Total clinical time spent by myself addressing the patient's medical issues, reviewing his data, and collaborating with patient's care team: 35 minutes Charges/Coding Visit Charges Inpatient E&M: 32703 Subs Hosp L2
[2025-03-22 10:03] LABS: Cholesterol 174 mg/dL (<=200); High Density Lipoprotein 37 mg/dL; Low Density Lipoprotein Calc. 101 mg/dL; Triglycerides 177 mg/dL; Very Low Density Lipoprotein 35 mg/dL (5-40); cholesterol:hdl ratio screen 4.68
[2025-03-22] MEDS: 0.9% Saline Lock 10 ML Syringe IV (10:48)
--- NOTE | 2025-03-22 18:29 | DCINST_ITS ---
Discharge Instructions Diet Discharge Diet: No restrictions DC O2, CPAP, BIPAP needs Home O2 Discharge instructions: No Dressing / Incision Discharge Activity: Return to Normal Activity Return to work on:: 03/25/25 Weight Bearing Status: Full weight bearing Follow Up Care Test Results: Test results from this visit will be discussed in further detail at your follow- up appointment, if applicable. Discharge Plan Admission Admit Date/Time: 03/21/25 19:29 Primary Reason for Your Visit: Non-STEMI Attending Provider: Dillon Reeder Primary Care Provider: CORTEZ JAIMES Consulting Providers: Fernando Whittaker; Jermaine Mcintyre Discharge Orders/Prescriptions Prescriptions: New atorvastatin 80 mg Tablet 80 mg PO QHS Qty: 30 0RF losartan 25 mg Tablet 25 mg PO DAILY Qty: 30 0RF aspirin 81 mg Tablet,Chewable 81 mg PO BREAKFAST Qty: 0 0RF metoprolol tartrate 25 mg Tablet 12.5 mg PO BID Qty: 30 0RF ticagrelor [Brilinta] 90 mg Tablet 90 mg PO BID Qty: 60 0RF Discontinued hydrochlorothiazide 25 mg tablet 25 mg PO DAILY losartan 50 mg tablet 50 mg PO DAILY Referrals / Follow Up: CORTEZ JAIMES [Other] - Within 2 Weeks Disposition Disposition (needs filled in before D/C Order can be placed): Home, Self Care
[2025-03-22] MEDS: Metoprolol Tartrate 25 MG Tablet 12.5 MG PO (21:16)
[2025-03-22] MEDS: Atorvastatin Calcium 80 MG Tablet PO (21:16)
[2025-03-23] VITALS (14 sets, daily range): BP systolic 93–145; BP diastolic 44–86; PULSE 54–72; RESP 14–19; TEMP 36.3–36.6; O2SAT 96–98; BMI 35.4
--- NOTE | 2025-03-23 07:22 | PCM.PN.CARD ---
Subjective Subjective Patient seen and evaluated. Doing well. Had uneventful night. Objective Data Vital Signs: Vital Signs Temp Pulse Resp BP Pulse Ox O2 Del Method 97.3 F L 71 14 111/71 96 Room Air 03/23/25 06:00 03/23/25 06:00 03/23/25 06:00 03/23/25 06:00 03/23/25 06:00 03/23/25 06:00 Oxygen Delivery Method Room Air Weight: 261 lb 3.964 oz Body Mass Index (BMI) 35.4 Intake & Output: Intake and Output for Last 24 Hours 03/21/25 03/22/25 03/23/25 23:59 23:59 23:59 Intake Total 400 / 400 2540 / 2540 Output Total 450 / 450 2350 / 2350 450 / 450 Balance -50 / -50 190 / 190 -450 / -450 Lab / Micro Data 03/22/25 05:15 03/22/25 05:15 Labs: Laboratory Results - last 24 hr 03/22/25 05:15: Sodium 138, Potassium 4.4, Chloride 102, Carbon Dioxide 24.8, Anion Gap 11, BUN 12, Creatinine 0.85, Estim Creat Clear Calc 147.58, Est GFR (MDRD) Non-Af 110, BUN/Creatinine Ratio 14.7, Glucose 115 H, Hemoglobin A1c 5.4, Calcium 9.2, Phosphorus 4.1, Magnesium 2.3 H, Total Bilirubin 0.51, Direct Bilirubin 0.13, AST 68 H, ALT 36, Alkaline Phosphatase 46, Total Protein 7.0, Albumin 4.2, Globulin 2.8, Albumin/Globulin Ratio 1.5, Triglycerides 177, Cholesterol 174, LDL Cholesterol, Calc 101, VLDL Cholesterol 35, HDL Cholesterol 37 L, Cholesterol/HDL Ratio 4.68 Cardiology Labs/Tests 03/22/25 05:15: Sodium 138, Potassium 4.4, Chloride 102, Carbon Dioxide 24.8, Anion Gap 11, BUN 12, Creatinine 0.85, Est GFR (MDRD) Non-Af 110, BUN/Creatinine Ratio 14.7, Glucose 115 H, Hemoglobin A1c 5.4, Calcium 9.2, Phosphorus 4.1, Magnesium 2.3 H, Total Bilirubin 0.51, Direct Bilirubin 0.13, Triglycerides 177, Cholesterol 174, VLDL Cholesterol 35, HDL Cholesterol 37 L, Cholesterol/HDL Ratio 4.68 Rhythm: EKG: ECHO: Stress Test: Cardiac Cath: PCI: CT Surgery: Holter monitor: EPS: PPM: CXR: Chest CT Scan: Physical Exam Const alert, oriented x3, no apparent distress and healthy appearing General Appearance: cooperative, well kempt and well developed Orientation / Consciousness: awake, oriented to person, oriented to place and oriented to time HEENT normocephalic, head/scalp atraumatic and moist oral mucous membranes Eyes PERRL, EOMs intact bilaterally and conjunctivae normal Neck supple, no JVD, thyroid normal and no carotid bruits General: trachea midline Resp normal respiratory effort, no retractions, no use of accessory muscles and clear to auscultation bilaterally Auscultation: Negative for rales, rhonchi or wheezes Cardio regular rate, regular rhythm, S1 normal heart sound, S2 normal heart sound, no murmurs, no rub and no gallops GI normal to inspection, nondistended, normoactive bowel sounds, soft to palpation, non-tender and non-distended Extremity no clubbing, cyanosis or edema Skin no rashes or lesions noted General Skin Exam: no breakdown Neuro oriented x3, CN's II-XII intact bilaterally, no focal motor deficits and no sensory deficits noted Sensorium / Orientation: awake and alert Speech: speech normal Psych affect normal Assessment & Plan Assessment/Plan (1) Unstable angina: PLAN: Patient presented with unstable angina symptoms and underwent a cardiac catheterization with demonstrated regular right coronary artery for which he underwent angioplasty and stenting. He did well. There is a residual distal wire left in situ. Plan to be to continue him on the beta-nando High intensity statin Aspirin Brilinta indefinitely Echocardiogram in a.m. and depending on the findings further recommendations will be made. Patient may be discharged later today for outpatient follow-up. He lives in [place] and arrangements will be made for him to see his physician in [place]. He should have all copies of his medications.
[2025-03-23] MEDS: Metoprolol Tartrate 25 MG Tablet 12.5 MG PO (07:26)
[2025-03-23] MEDS: TICAGRELOR 90 MG TABLET PO (07:27)
[2025-03-23] MEDS: Aspirin 81 MG TAB.CHEW PO (07:27)
[2025-03-23] MEDS: Losartan Potassium 25 MG Tablet PO (07:27)
--- NOTE | 2025-03-23 10:00 | EKG12_ITS ---
Test Reason : post pci Blood Pressure : */* mmHG Vent. Rate : 69 BPM Atrial Rate : 69 BPM P-R Int : 162 ms QRS Dur : 84 ms QT Int : 412 ms P-R-T Axes : 73 -7 -20 degrees QTcB Int : 441 ms Normal sinus rhythm with sinus arrhythmia Inferior infarct , age undetermined Abnormal ECG When compared with ECG of 22-Mar-2025 05:35, MANUAL COMPARISON REQUIRED DATA IS UNCONFIRMED Confirmed by KELLI OVIEDO, TERE ([id number]), photographic editor TAYA CHUNG ([id number]) on 03/23/2025 2:33:02 PM Referred By: Confirmed By: TERE PEREIRA MD
--- NOTE | 2025-03-23 10:18 | CASEMGMT ---
ERMIAS CANDELARIO Assessment Face to Face with patient for initial transition planning/care coordination assessment. ERMIAS CANDELARIO introduced self and role at [facility], pt voices understanding. Pt is A&Ox4 and is resting comfortably in bed and is calm. Care providers, pharmacy, and demographics verified. Admitting dx: STEMI LACE Strata: 1 PCP: Sara Frazier Specialists: Denies Preferred Pharmacy: [facility] during this stay Insurance: ANTHEM Prescription Benefit: Yes LNOK: , Mother Living Arrangements: Pt lives with his and 3 kids (Ages 8, 17, & 18) in a single story home with one step to enter. Pt is from [place] and was camping around this area prior to admission. Pt plans to return back home at the time of DC. ADLs/IADLs: Ind. 6-Click is 24 Transportation: self, . Denies concerns DME: Denies HHC/SNF: denies Pt?s goal: Home Plan: Home, anticipate no additional needs. Follow for new blood thinning Rx. Pt is getting Brilinta currently. CM to follow. Pt states that he feels safe returning home with his once he is medically ready and denies further questions or concerns at this time. David Salazar RN, CM
--- NOTE | 2025-03-23 10:57 | PCM.DC.SUM ---
Providers Date of Admission: 03/21/25 Date of Discharge: 03/23/25 Primary Care Physician: CORTEZ JAIMES Reason For Visit: STEMI Diagnosis Discharge Diagnosis (1) Unstable angina: Status: Acute Code(s): I20.0 - Unstable angina Plan 1. 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, left anterior descending artery, and circumflex Total clinical time spent by myself addressing the patient's medical issues, reviewing his data, and collaborating with patient's care team: 35 minutes Medications at Discharge Home Medications aspirin 81 mg chewable tablet 81 mg PO BREAKFAST #0 tabs 03/22/25 atorvastatin 80 mg tablet 80 mg PO QHS #30 tabs 03/22/25 losartan 25 mg tablet 25 mg PO DAILY #30 tabs 03/22/25 metoprolol tartrate 25 mg tablet 12.5 mg (1/2 x 25 mg) PO BID #30 tabs 03/22/25 ticagrelor 90 mg tablet (Brilinta) 90 mg PO BID #60 tabs 03/22/25 Hospital Course Operations None Procedures 2-D Echocardiogram and Cardiac catheterization (With stents placed in the right coronary artery) Summary of Care Provided Minutes Spent on Discharge: 31 Hospital Course: This 44-year-old white male was seen in the emergency room at [facility] with a chief complaint of substernal chest pain. Patient was camping at a campground and had finished riding his bicycle and got substernal chest pain. Patient states he became diaphoretic and clammy, he vomited on the way to the hospital. EKG was obtained and there was a concern the patient was having NSTEMI, the images of the EKG were relayed to the rn team leader who felt that the patient did not have a STEMI but acute coronary syndrome. Labs showed a normal white blood cell count, troponin was less than 6, chemistry profile was unremarkable. Patient was taken to the [facility] and he was noted to have an occlusion in the right coronary artery, a RODRIGO was placed, there was nonocclusive coronary disease in the other arteries. Patient was admitted to ICU, he was kept on antiplatelet meds and a statin, he was placed on a beta-jill also. Patient's echocardiogram the next day showed no evidence of decreased ejection fraction. On 03/23/2025, patient was seen and examined: On examination he appeared in good health and spirits. Vital signs as documented. Skin warm and dry and without overt rashes. Neck without JVD, neck was supple, trachea midline, thyroid was normal. Lungs clear bilaterally, normal air movement was noted. Heart exam notable for regular rhythm, normal sounds and absence of murmurs, rubs or gallops. Abdomen unremarkable and without evidence of organomegaly, masses, or abdominal aortic enlargement. Bowel sounds are present, abdomen is not distended. Extremities nonedematous, no cyanosis was noted, no clubbing was noted. Neuro: Cranial nerves II through XII are grossly intact, no focal motor deficits were noted, sensation to light touch and pinprick intact, motor exam 5/5 throughout. Psych: Patient is alert and oriented x3, he does not appear anxious or depressed, he does not appear agitated. Patient appears stable for discharge on 03/23/2025. Weight / BMI Weight Weight: 118.5 kg Body Mass Index (BMI) 35.4 ABG / Lab / Microbiology Data 03/22/25 05:15 03/22/25 05:15 D/C Instructions Discharge Diet: No restrictions Return to work on: 03/25/25 Weight Bearing Status: Full weight bearing DC O2, CPAP, BIPAP Needs Home O2 Discharge instructions: No Meaningful Use Info Meaningful Use Meaningful Use Diagnoses (Choose all that apply): AMI AMI/Post PCI/Angioplasty Aspirin given w/in 24hrs of arrival?: Yes ASA at discharge?: Yes Antiplatelet Therapy at Discharge:: Yes Statins at discharge?: Yes Raudel/ARB at discharge?: Yes Beta Jill at discharge?: Yes Done w/ Acute OH measure.: Yes Documented LVEF (%): 55 Ischemic Stroke Statin Dosing Therapy Reference: STATIN DOSE THERAPY REFERENCE: * Patients > 75 years receive moderate or high dose statin therapy. * Patients 75 years or YOUNGER should receive HIGH intensity statin dose unless contraindicated. You will be required to document reason for non-treatment if statin daily dose does not meet guidelines. HIGH DOSE STATIN THERAPY DAILY Atorvastatin > than or = to 40 mg Rosuvastatin > than or = to 20 mg Amlodipine + Atorvastatin > than or = to 2.5/40 mg Ezetimibe + Simvastatin 10/80 mg Simvastatin 80mg Discharge Plan Admission Admit Date/Time: 03/21/25 19:29 Primary Reason for Your Visit: Non-STEMI Attending Provider: Dillon Reeder Primary Care Provider: CORTEZ JAIMES Consulting Providers: Fernando Whittaker; Jermaine Mcintyre Discharge Orders/Prescriptions Prescriptions: New atorvastatin 80 mg Tablet 80 mg PO QHS Qty: 30 0RF losartan 25 mg Tablet 25 mg PO DAILY Qty: 30 0RF aspirin 81 mg Tablet,Chewable 81 mg PO BREAKFAST Qty: 0 0RF metoprolol tartrate 25 mg Tablet 12.5 mg PO BID Qty: 30 0RF ticagrelor [Brilinta] 90 mg Tablet 90 mg PO BID Qty: 60 0RF Discontinued hydrochlorothiazide 25 mg tablet 25 mg PO DAILY losartan 50 mg tablet 50 mg PO DAILY Referrals / Follow Up: CORTEZ JAIMES [Other] - Within 2 Weeks Disposition Disposition (needs filled in before D/C Order can be placed): Home, Self Care Charges/Coding Visit Charges Inpatient E&M: 12559 Disch Hosp >30min
--- NOTE | 2025-03-23 11:15 | CASEMGMT ---
Pt has an order for DC placed with a new prescription for Brilinta. TC to [facility] who states that the pt has a copay for 10$. Pt states that he is agreeable to this and that he has a payment method for meds to bed. WCP notified and to deliver medications once able. Pt states that he has a ride home and denies further DC needs. Pt RN aware.
--- NOTE | 2025-03-23 11:39 | PHA.DC.MC.R ---
Pharmacy [facility] has performed discharge medication reconciliation and counseling for this patient. 1. ASPIRIN 81MG PO BREAKFAST 2. ATORVASTATIN 80MG PO QHS 3. METOPROLOL TARTRATE 12.5MG PO BID 4. TICAGRELOR 90MG PO BID 5. LOSARTAN DECREASED TO 25MG 5. STOP HYDROCHLOROTHIAZIDE The patient's discharge medication list was reviewed for discrepancies and discrepancies were resolved. The patient was counseled on the following discharge medications and changes in medications for homegoing were reviewed. The Reason for Use, instructions for use, and potential side effects were reviewed for all new medications. The patient's questions regarding all of their medications were answered. The patient was able to verbally demonstrate an understanding of their discharge medications. Medications at Discharge Home Medications aspirin 81 mg chewable tablet 81 mg PO BREAKFAST #0 tabs 03/22/25 atorvastatin 80 mg tablet 80 mg PO QHS #30 tabs 03/22/25 losartan 25 mg tablet 25 mg PO DAILY #30 tabs 25 metoprolol tartrate 25 mg tablet 12.5 mg (1/2 x 25 mg) PO BID #30 tabs 03/22/25 ticagrelor 90 mg tablet (Brilinta) 90 mg PO BID #60 tabs 25
== END 2025-03-23 12:25 | disposition home or self-care (01) | DRG 322 ==
LOC: ED 19:27 → ICU 19:39
PROVIDERS: Internal Medicine Cardiovascular Disease; Specialist; Admitting Provider Internal Medicine; Emergency Provider Emergency Medicine; Visit Provider Internal Medicine
DX: I21.4 Non-ST elevation (NSTEMI) myocardial infarction (principal); E78.5 Hyperlipidemia, unspecified; I10 Essential (primary) hypertension; I25.84 Coronary atherosclerosis due to calcified coronary lesion; I25.10 Atherosclerotic heart disease of native coronary artery without angina pectoris; Z87.891 Personal history of nicotine dependence; I49.3 Ventricular premature depolarization
CPT/HCPCS: 80048; 80053; 80061; 80076; 83036; 83735; 84100; 84443; 84484; 85025; 85610; 85730; 92928; 93005; 93306; 93454; 94762; 97161; 97165; 97802; 99285; C1757; C1769; Q9957; Q9967; A4216; C1725; C1773; C1874; C1887; C1894; C8929; C9600; J1327; J2405